=== PATIENT | female | born 1945 | race Caucasian/White ===

== ENCOUNTER 2016-08-09 09:07 | Emergency (ER) | payer MEDICARE, MEDICAID ==
[2016-08-09] MEDS ORDERED: predniSONE 20 MG TAB ONE (09:37)
== END 2016-08-09 10:39 | disposition home or self-care (01) ==
LOC: BURERS 09:07
DX: M54.41 Lumbago with sciatica, right side (principal); M54.42 Lumbago with sciatica, left side; J44.0 Chronic obstructive pulmonary disease with (acute) lower respiratory infection; J22 Unspecified acute lower respiratory infection; I10 Essential (primary) hypertension; E78.5 Hyperlipidemia, unspecified; E78.00 Pure hypercholesterolemia, unspecified; Z79.82 Long term (current) use of aspirin; Z79.899 Other long term (current) drug therapy; Z87.891 Personal history of nicotine dependence
CPT/HCPCS: 96372; J2270; J7506

== ENCOUNTER 2016-10-05 13:36 | Outpatient (CLI) | payer MEDICARE, MEDICAID ==
[2016-10-05 14:26] LABS: #Basophils 0.1 thou/uL (0.0-0.2); #Eosinphils 1.9 thou/uL (0.0-0.7); #Lymphocytes 2.5 thou/uL (1.20-3.40); #Monocytes 0.4 thou/uL (0.11-0.59); #Neutrophils 5.3 thou/uL (1.40-6.50); %Basophils 0.8 % (0.0-1.0); %Eosinophils 18.6 % (0.0-10.0); %Lymphocytes 24.3 % (21.0-51.0); %Monocytes 3.7 % (0.0-10.0); %Neutrophils 52.6 % (42.0-75.0); Hemoglobin 13.3 g/dL (12.0-16.0); Mean Corpuscular HGB CONC 32.8 g/dL (32.0-36.0); Mean Corpuscular Hemoglobin 28.4 pg (27.0-31.0); Mean Corpuscular Volume 86.7 fl (81.0-99.0); Mean Platelet Volume 7.3 fL (7.4-10.4); Platelet Count 283 thou/uL (130-400); RBC Distribution Width 13.1 % (11.5-14.5); Red Blood Cell (RBC) Count 4.69 mill/uL (4.20-5.40); White Blood Cell (WBC) Count 10.1 thou/uL (4.8-10.8)
[2016-10-05 15:26] LABS: Anion Gap 15 mmol/L (10-20); Carbon Dioxide 28 mmol/L (23-31); Chloride 103 mmol/L (98-107); Sodium 142 mmol/L (136-145)
[2016-10-05 15:28] LABS: Albumin 4.5 g/dL (3.4-4.8); Alkaline Phosphatase 173 U/L (40-150); BUN (Urea Nitrogen) 23 mg/dL (9.8-20.1); Bilirubin, Total 0.5 mg/dL (0.2-1.2); Calc. Creatinine Clearance 0 mL/min (70-130); Calcium 9.6 mg/dL (7.8-10.44); Cholesterol 136 mg/dL (< 200 Desired); Estimated GFR-MDRD 49; Globulin 2.8 g/dL (2.4-3.5); Glucose 104 mg/dL (83-110); Protein, Total 7.3 g/dL (5.8-8.1)
[2016-10-05 15:29] LABS: ALT (SGPT) 15 U/L (8-55); AST (SGOT) 16 U/L (5-34); HDL Cholesterol 46 mg/dL (>60 Neg Risk); LDL Cholesterol, Calculated 72 mg/dL; Triglycerides 88 mg/dL (Less than 150)
== END 2016-10-05 13:37 | disposition home or self-care (01) ==
LOC: HPCALD 13:36
PROVIDERS: ATTEND Family Medicine
DX: E78.5 Hyperlipidemia, unspecified (principal); I10 Essential (primary) hypertension
CPT/HCPCS: 36415; 80053; 80061; 85025

== ENCOUNTER 2017-01-03 21:33 | Emergency (ER) | payer MEDICARE, MEDICAID ==
[2017-01-03] MEDS ORDERED: Acetaminophen 325 MG TAB ONE (22:24)
[2017-01-03] MEDS ORDERED: Ondansetron HCl/PF 4 MG/2 ML Vial ONE ×2 (22:24→23:23)
[2017-01-03 22:36] LABS: #Basophils 0.1 thou/uL (0.0-0.2); #Eosinphils 1.1 thou/uL (0.0-0.7); #Monocytes 0.5 thou/uL (0.11-0.59); %Basophils 0.9 % (0.0-1.0); %Eosinophils 11.2 % (0.0-10.0); %Lymphocytes 31.2 % (21.0-51.0); %Monocytes 4.9 % (0.0-10.0); %Neutrophils 51.8 % (42.0-75.0); Hemoglobin 12.7 g/dL (12.0-16.0); Mean Corpuscular HGB CONC 32.9 g/dL (32.0-36.0); Mean Corpuscular Hemoglobin 28.2 pg (27.0-31.0); Mean Corpuscular Volume 85.8 fl (81.0-99.0); Mean Platelet Volume 8.1 fL (7.4-10.4); Platelet Count 284 thou/uL (130-400); RBC Distribution Width 12.4 % (11.5-14.5); Red Blood Cell (RBC) Count 4.52 mill/uL (4.20-5.40); White Blood Cell (WBC) Count 9.6 thou/uL (4.8-10.8)
[2017-01-03 22:45] LABS: INR-International Normal Ratio 1.1; PTT 25.3 SEC (22.9-36.1); Prothrombin Time 14.1 SEC (12.0-14.7)
[2017-01-03 22:46] LABS: Blood, Urine Trace (Negative); Clarity Slightly Cloudy (Clear); Glucose, Urine (Dipstick) Negative (Negative); Leukocyte Moderate (Negative); Nitrite Negative (Negative); Protein, Urine (Dipstick) Negative (Neg-Trace); Urobilinogen 0.2 mg/dL (0.2-1.0)
[2017-01-03 22:49] LABS: Bilirubin Negative (Negative)
[2017-01-03 22:52] LABS: Squamous Epithelial 0-3 HPF (0-3)
[2017-01-03 22:53] LABS: Bacteria/HPF 1+ HPF (None Seen); Hyaline Casts/LPF 4-6 HYALINE CAST LPF (0-3 Hyaline)
[2017-01-03 22:55] LABS: ALT (SGPT) 15 U/L (8-55); AST (SGOT) 16 U/L (5-34); Albumin 4.4 g/dL (3.4-4.8); Alkaline Phosphatase 162 U/L (40-150); Anion Gap 16 mmol/L (10-20); BUN (Urea Nitrogen) 23 mg/dL (9.8-20.1); Bilirubin, Total 0.3 mg/dL (0.2-1.2); CK (CPK) 80 U/L (29-168); CKMB 1.7 ng/mL (0-6.6); Calc. Creatinine Clearance 0 mL/min (70-130); Calcium 10.3 mg/dL (7.8-10.44); Carbon Dioxide 28 mmol/L (23-31); Chloride 104 mmol/L (98-107); Estimated GFR-MDRD 38; Glucose 127 mg/dL (83-110); Lipase 44 U/L (8-78); Potassium 3.6 mmol/L (3.5-5.1); Protein, Total 7.4 g/dL (6.0-8.3); Sodium 144 mmol/L (136-145); Troponin I 0.013 ng/mL (< 0.028)
[2017-01-04] MEDS ORDERED: Sulfameth/Trimethoprim DS 800-160mg TAB ONE (00:08)
--- NOTE | 2017-01-04 10:40 | RAD ---
PORTABLE CHEST: Date: 01-04-17 An AP portable film at 2254 is compared with a 04-09-15 study. FINDINGS: The heart is normal in size. The lungs are clear. No acute infiltrate or effusion was seen. The lung s are mildly hyperexpanded as usual. IMPRESSION: No acute thoracic finding. POS: HOME
--- NOTE | 2017-01-04 11:34 | CT ---
PRELIMINARY REPORT/[facility]/EMERGENCY AFTER HOURS PROCEDURE: EXAM: CT Head Without Intravenous Contrast EXAM DATE/TIME: Exam ordered 01/03/2017 11:11 PM CLINICAL HISTORY: 71 years old, female; Signs and symptoms; Dizziness; Patient HX: Dizzy x 1 day TECHNIQUE: Axial computed tomography images of the head/brain without intravenous contrast. COMPARISON: No relevant prior studies available. FINDINGS: Brain: Unremarkable. No hemorrhage. No significant white matter disease. No edema. Ventricles: Unremarkable. No ventriculomegaly. Bones/joints: Unremarkable. No acute fracture. Soft tissues: Unremarkable. Sinuses: Unremarkable as visualized. No acute sinusitis. Mastoid air cells: Unremarkable as visualized. No mastoid effusion. IMPRESSION: Normal head/brain CT. Thank you for allowing us to participate in the care of your patient. Dictated and Authenticated by: Octaviano Cordova MD 01/03/2017 11:31 PM Central Time ([place] \T\ [place]) FINAL REPORT CT OF THE BRAIN WITHOUT CONTRAST: Date: 01/04/17 No prior scans were available for comparison. The ventricles are normal in size with no shift. No in tracranial bleeding, mass, or sign of stroke was found. No edema was seen. The calvarium is thick, b ut otherwise unremarkable. The sphenoid sinus and mastoid air cells are clear. IMPRESSION: No acute intracranial findings. Report in agreement with preliminary reading by Juan C. POS: HOME
== END 2017-01-04 00:15 | disposition home or self-care (01) ==
LOC: BURERS 21:33
DX: N39.0 Urinary tract infection, site not specified (principal); R42 Dizziness and giddiness; I10 Essential (primary) hypertension; E78.5 Hyperlipidemia, unspecified; J44.9 Chronic obstructive pulmonary disease, unspecified; Z79.82 Long term (current) use of aspirin; Z79.899 Other long term (current) drug therapy; Z87.891 Personal history of nicotine dependence
CPT/HCPCS: 70450; 71010; 80053; 81003; 81015; 82553; 83690; 83880; 84484; 85025; 85610; 85730; 93005; 94760; 96361; 96374; J2270; J2405

== ENCOUNTER 2018-05-05 11:50 | Emergency (ER) | payer MEDICARE, MEDICAID | END 2018-05-05 12:55 | disposition home or self-care (01) | LOC: BURERS 11:50 | DX: L04.9 Acute lymphadenitis, unspecified (principal); I10 Essential (primary) hypertension; E78.5 Hyperlipidemia, unspecified; J44.9 Chronic obstructive pulmonary disease, unspecified; Z87.891 Personal history of nicotine dependence; Z79.899 Other long term (current) drug therapy; Z79.82 Long term (current) use of aspirin; Z79.51 Long term (current) use of inhaled steroids | CPT/HCPCS: 99283 ==

== ENCOUNTER 2018-07-06 08:46 | Emergency (ER) | payer MEDICARE, MEDICAID ==
[2018-07-06 09:19] LABS: #Basophils 0.1 thou/uL (0.0-0.2); #Eosinphils 0.7 thou/uL (0.0-0.7); #Lymphocytes 1.8 thou/uL (1.20-3.40); #Monocytes 0.3 thou/uL (0.11-0.59); #Neutrophils 3.9 thou/uL (1.40-6.50); %Eosinophils 10.5 % (0.0-10.0); %Lymphocytes 26.8 % (21.0-51.0); %Monocytes 4.6 % (0.0-10.0); %Neutrophils 57.2 % (42.0-75.0); Hemoglobin 12.1 g/dL (12.0-16.0); Mean Corpuscular HGB CONC 33.1 g/dL (32.0-36.0); Mean Corpuscular Hemoglobin 28.1 pg (27.0-31.0); Mean Corpuscular Volume 84.9 fL (78.0-98.0); Mean Platelet Volume 7.9 fL (7.4-10.4); Platelet Count 270 thou/uL (130-400); RBC Distribution Width 13.6 % (11.5-14.5); Red Blood Cell (RBC) Count 4.29 mill/uL (4.20-5.40); White Blood Cell (WBC) Count 6.9 thou/uL (4.8-10.8)
[2018-07-06 09:38] LABS: ALT (SGPT) 24 U/L (8-55); AST (SGOT) 29 U/L (5-34); Albumin 4.5 g/dL (3.4-4.8); Alkaline Phosphatase 125 U/L (40-150); Anion Gap 15 mmol/L (10-20); BUN (Urea Nitrogen) 15 mg/dL (9.8-20.1); Bilirubin, Total 0.6 mg/dL (0.2-1.2); Calc. Creatinine Clearance 0 mL/min (70-130); Calcium 9.7 mg/dL (7.8-10.44); Carbon Dioxide 24 mmol/L (23-31); Chloride 108 mmol/L (98-107); Estimated GFR-MDRD 56; Globulin 2.8 g/dL (2.4-3.5); Glucose 106 mg/dL (83-110); Potassium 4.1 mmol/L (3.5-5.1); Protein, Total 7.3 g/dL (6.0-8.3); Sodium 143 mmol/L (136-145)
[2018-07-06] MEDS ORDERED: methylPREDNISolone Sod Succ/PF 125 MG/2 ML VIAL ONE (09:43)
--- NOTE | 2018-07-06 20:08 | RAD ---
PORTABLE CHEST: 07/06/18 An AP portable film at 0851 is compared with a 06/02/[address] [facility]. The lungs are mildly hyperexpanded as usual. There are no major lobar infiltrates. A little haziness in the left base seems no different than before. There is no vascular congestion or edema. The heart size is normal. IMPRESSION: No acute thoracic finding. POS: HOME
== END 2018-07-06 10:34 | disposition home or self-care (01) ==
LOC: BURERS 08:46
DX: J44.1 Chronic obstructive pulmonary disease with (acute) exacerbation (principal); I10 Essential (primary) hypertension; E78.5 Hyperlipidemia, unspecified; Z87.891 Personal history of nicotine dependence; Z79.51 Long term (current) use of inhaled steroids; Z79.899 Other long term (current) drug therapy; Z79.82 Long term (current) use of aspirin
CPT/HCPCS: 71045; 80053; 83880; 84484; 85025; 93005; 94640; 96374; J2930; J7620

== ENCOUNTER 2019-02-17 17:56 | Emergency (ER) | payer MEDICARE, MEDICAID ==
[2019-02-17] MEDS ORDERED: methylPREDNISolone Sod Succ/PF 125 MG/2 ML VIAL ONE (18:22)
[2019-02-17 18:32] LABS: #Basophils 0.1 thou/uL (0.0-0.2); #Lymphocytes 2.5 thou/uL (1.20-3.40); #Monocytes 0.4 thou/uL (0.11-0.59); #Neutrophils 3.9 thou/uL (1.40-6.50); %Basophils 1.1 % (0.0-1.0); %Eosinophils 12.5 % (0.0-10.0); %Lymphocytes 31.3 % (21.0-51.0); %Monocytes 5.6 % (0.0-10.0); %Neutrophils 49.5 % (42.0-75.0); Mean Corpuscular HGB CONC 31.7 g/dL (32.0-36.0); Mean Corpuscular Hemoglobin 27.7 pg (27.0-31.0); Mean Corpuscular Volume 87.4 fL (78.0-98.0); Mean Platelet Volume 8.1 fL (7.4-10.4); Platelet Count 247 thou/uL (130-400); RBC Distribution Width 12.9 % (11.5-14.5); Red Blood Cell (RBC) Count 4.33 mill/uL (4.20-5.40); White Blood Cell (WBC) Count 7.9 thou/uL (4.8-10.8)
--- NOTE | 2019-02-17 18:38 | RAD ---
EXAM: Chest one view: HISTORY: Cough, fever, and COPD exacerbation COMPARISON: 26/12/2018 FINDINGS: Lower cervical spine anterior cervical fusion changes. Minimal stable increased markings in the left base. Heart size: Within normal limits. Lungs: Clear of acute process. No evidence for pneumonia, pleural effusion, acute edema, or pneumothorax, or other significant acute process. IMPRESSION: No significant acute intrathoracic disease. Stable exam.
[2019-02-17 18:44] LABS: ALT (SGPT) 12 U/L (8-55); AST (SGOT) 14 U/L (5-34); Albumin 4.4 g/dL (3.4-4.8); Alkaline Phosphatase 136 U/L (40-110); Anion Gap 15 mmol/L (10-20); BUN (Urea Nitrogen) 20 mg/dL (9.8-20.1); Bilirubin, Total 0.3 mg/dL (0.2-1.2); CK (CPK) 101 U/L (29-168); Calc. Creatinine Clearance 0 mL/min (70-130); Calcium 9.1 mg/dL (7.8-10.44); Carbon Dioxide 26 mmol/L (23-31); Chloride 106 mmol/L (98-107); Estimated GFR-MDRD 34; Globulin 2.8 g/dL (2.4-3.5); Glucose 105 mg/dL (83-110); Potassium 3.8 mmol/L (3.5-5.1); Protein, Total 7.2 g/dL (6.0-8.3); Sodium 143 mmol/L (136-145)
== END 2019-02-17 19:13 | disposition home or self-care (01) ==
LOC: BURERS 17:56
DX: J44.1 Chronic obstructive pulmonary disease with (acute) exacerbation (principal); I10 Essential (primary) hypertension; E78.5 Hyperlipidemia, unspecified; E78.00 Pure hypercholesterolemia, unspecified; Z87.891 Personal history of nicotine dependence; Z79.899 Other long term (current) drug therapy; Z79.82 Long term (current) use of aspirin; Z79.51 Long term (current) use of inhaled steroids
CPT/HCPCS: 71045; 80053; 82550; 84443; 84484; 85025; 93005; 96374; J2930; J7620

== ENCOUNTER 2019-03-08 16:33 | Emergency (ER) | payer MEDICARE, MEDICAID ==
[2019-03-08 16:50] LABS: #Basophils 0.2 thou/uL (0.0-0.2); #Eosinphils 1.4 thou/uL (0.0-0.7); #Monocytes 0.8 thou/uL (0.11-0.59); #Neutrophils 6.7 thou/uL (1.40-6.50); %Basophils 1.2 % (0.0-1.0); %Eosinophils 10.4 % (0.0-10.0); %Lymphocytes 31.1 % (21.0-51.0); %Neutrophils 51.3 % (42.0-75.0); Hemoglobin 13.3 g/dL (12.0-16.0); Mean Corpuscular HGB CONC 30.4 g/dL (32.0-36.0); Mean Corpuscular Hemoglobin 27.5 pg (27.0-31.0); Mean Corpuscular Volume 90.4 fL (78.0-98.0); Mean Platelet Volume 8.3 fL (7.4-10.4); Platelet Count 305 thou/uL (130-400); Red Blood Cell (RBC) Count 4.83 mill/uL (4.20-5.40)
[2019-03-08 17:08] LABS: ALT (SGPT) 10 U/L (8-55); AST (SGOT) 16 U/L (5-34); Alkaline Phosphatase 146 U/L (40-110); Anion Gap 17 mmol/L (10-20); BUN (Urea Nitrogen) 19 mg/dL (9.8-20.1); Base Excess-Venous 1.1 mmol/L (-2.0 to 3.0); Bicarbonate (HCO3v) 31.7 mmol/L (22.0-28.0); Bilirubin, Total 0.4 mg/dL (0.2-1.2); CO2 Tension (PvCO2) 78.8 mmHg (40.0-50.0); Calc. Creatinine Clearance 0 mL/min (70-130); Calcium, Ionized 1.24 mmol/L (See Comments:); Carbon Dioxide 27 mmol/L (23-31); Chloride 106 mmol/L (98-107); Chloride 107 mmol/L (98-107); Estimated GFR-MDRD 44; Globulin 2.6 g/dL (2.4-3.5); Glucose 97 mg/dL (83-110); Hemoglobin - Calc 15.1 g/dL (12.0-16.0); Potassium 3.7 mmol/L (3.5-5.1); Protein, Total 7.6 g/dL (6.0-8.3); Sodium 145 mmol/L (138-145); Sodium 146 mmol/L (136-145); T. Carbon Dioxide 34.1 mmol/L (22.0-28.0)
[2019-03-08] MEDS ORDERED: Acetaminophen 500 MG TAB ONE (17:52)
[2019-03-08] MEDS ORDERED: Azithromycin 250 MG TAB ONE ×2 (18:55→18:56)
--- NOTE | 2019-03-08 19:41 | RAD ---
PORTABLE CHEST: 03/08/19 An AP portable film at 1656 is compared with a 02/17/19 study. Some lingular scarring is suggested. The heart size is normal. No lobar consolidations or effusions a re seen, but it is difficult to see well in the left lung base. Slight haziness in the bases otherwis e is felt to be due to overlying soft tissues. Degenerative changes are present in the AC joints. IMPRESSION: No acute thoracic finding. POS: HOME
== END 2019-03-08 19:00 | disposition home or self-care (01) ==
LOC: BURERS 16:33
DX: J44.1 Chronic obstructive pulmonary disease with (acute) exacerbation (principal); I10 Essential (primary) hypertension; E78.00 Pure hypercholesterolemia, unspecified; Z87.891 Personal history of nicotine dependence; Z79.899 Other long term (current) drug therapy; Z79.82 Long term (current) use of aspirin; Z79.51 Long term (current) use of inhaled steroids
CPT/HCPCS: 71045; 80053; 82330; 82803; 83880; 84484; 85025; 93005; 96365; 96375; J7620

== ENCOUNTER 2019-09-24 22:40 | Emergency (ER) | payer MEDICARE, MEDICAID ==
[2019-09-24] MEDS ORDERED: methylPREDNISolone Sod Succ/PF 125 MG/2 ML VIAL ONE (22:55)
== END 2019-09-24 23:05 | disposition home or self-care (01) ==
LOC: BURERS 22:40
DX: J44.1 Chronic obstructive pulmonary disease with (acute) exacerbation (principal); I11.0 Hypertensive heart disease with heart failure; I50.9 Heart failure, unspecified; E78.5 Hyperlipidemia, unspecified; E78.00 Pure hypercholesterolemia, unspecified; Z87.891 Personal history of nicotine dependence; Z79.899 Other long term (current) drug therapy; Z79.82 Long term (current) use of aspirin; Z79.51 Long term (current) use of inhaled steroids
CPT/HCPCS: 96372; 99284; J2930

== ENCOUNTER → 2019-10-03 | Emergency (ER) | payer MEDICARE, MEDICAID, OTHER ==
[~2019-10-03] MED LIST: Fentanyl 100 MCG/2 ML VIAL ONE; Midazolam HCl 2 mg/2 ml Vial ONE; Rocuronium Bromide 10 MG/ML (10ML VIAL) ONE; Sodium Chloride 0.9% 100 ML ONE; cefTRIAXone\\ROCEPHIN 1 GM VIAL ONE; methylPREDNISolone Sod Succ/PF 125 MG/2 ML VIAL ONE
[2019-10-03 10:19] LABS: Hemoglobin 12.9 g/dL (12.0-16.0); Mean Corpuscular HGB CONC 29.5 g/dL (32.0-36.0); Mean Corpuscular Hemoglobin 27.2 pg (27.0-31.0); Mean Corpuscular Volume 92.5 fL (78.0-98.0); Mean Platelet Volume 8.3 fL (7.4-10.4); Platelet Count 540 thou/uL (130-400); RBC Distribution Width 13.4 % (11.5-14.5); Red Blood Cell (RBC) Count 4.75 mill/uL (4.20-5.40); White Blood Cell (WBC) Count 29.4 thou/uL (4.8-10.8)
[2019-10-03 10:42] LABS: Eosinophils 1 % (0-10); Lymphocytes 38 % (21-51); MDiff Complete? YES; Monocytes 7 % (0-10); Neutrophil 53 % (42-75); Platelet Morphology Comment Appears Increased
[2019-10-03 11:07] LABS: ALT (SGPT) 10 U/L (8-55); AST (SGOT) 14 U/L (5-34); Albumin 4.5 g/dL (3.4-4.8); Alkaline Phosphatase 117 U/L (40-110); Anion Gap 14 mmol/L (10-20); BUN (Urea Nitrogen) 22 mg/dL (9.8-20.1); Bilirubin, Total 0.4 mg/dL (0.2-1.2); Calc. Creatinine Clearance 0 mL/min (70-130); Calcium 9.2 mg/dL (7.8-10.44); Carbon Dioxide 30 mmol/L (23-31); Chloride 106 mmol/L (98-107); Estimated GFR-MDRD 40; Globulin 2.2 g/dL (2.4-3.5); Glucose 234 mg/dL (83-110); Potassium 4.5 mmol/L (3.5-5.1); Protein, Total 6.7 g/dL (6.0-8.3); Sodium 145 mmol/L (136-145)
--- NOTE | 2019-10-03 19:59 | RAD ---
PORTABLE CHEST: 10/03/19 An AP semiupright film at 1011 is compared with a 07/23/2019 study. While there is no major lobar infiltrate, the lung markings in the right lung base seem a little more than they were previously. I cannot exclude a developing infiltrate here. The patient has been intub ated. The tip of the endometrial tube is 1 cm or 2 above the megan. I believe an NG tube is present as well but it cannot be easily followed to its tip. The heart size is normal. IMPRESSION: Slight increase in right basilar markings. POS: HOME
[2019-10-04 10:57] LABS: SARS-CoV-2 MS2 Positive; SARS-CoV-2 N Gene Negative; SARS-CoV-2 S Gene Negative; SARS-CoV-2 orf1ab Negative
== END ==
LOC: BURERS 09:30
DX: J44.1 Chronic obstructive pulmonary disease with (acute) exacerbation (principal); J96.90 Respiratory failure, unspecified, unspecified whether with hypoxia or hypercapnia; Z87.891 Personal history of nicotine dependence; Z20.828 Contact with and (suspected) exposure to other viral communicable diseases
CPT/HCPCS: 31500; 71045; 80053; 84484; 85025; 85379; 87040; 87804 ×2; 93005; 96374; 96375; 99291; 99292; U0003; 87635; J0696; J2250; J2930; J3010; J3490; J7620

== ENCOUNTER 2019-10-25 15:12 | Outpatient (CLI) | payer MEDICARE, MEDICAID ==
--- NOTE | 2019-10-25 17:58 | RAD ---
LUMBAR SPINE THREE VIEWS: 10/25/19 Mild lumbar scoliosis convexed right was noted. No fracture or vertebral compression was appreciated. Very slight disc space narrowing is seen at L1-L2, L2-L3, and L4-L5. Osteophytes are seen at most le vels. The SI joints are normal in appearance. There is considerable material in the colon. The aorta is densely calcified, as are the iliac arteries. IMPRESSION: Moderate arthritic changes but no acute findings. POS: HOME
== END 2019-10-25 15:13 | disposition home or self-care (01) ==
LOC: BURRAD 15:12
PROVIDERS: ATTEND Family Medicine
DX: M54.5 Low back pain (principal); M46.96 Unspecified inflammatory spondylopathy, lumbar region
CPT/HCPCS: 72100

== ENCOUNTER 2019-11-05 19:11 | Emergency (ER) | payer MEDICARE, MEDICAID, OTHER ==
[~2019-11-05 19:11] MED LIST changes: -Fentanyl 100 MCG/2 ML VIAL ONE; +Iopamidol 370 76% 100 ML VIAL ONE; -Midazolam HCl 2 mg/2 ml Vial ONE; -Rocuronium Bromide 10 MG/ML (10ML VIAL) ONE; -Sodium Chloride 0.9% 100 ML ONE; -cefTRIAXone\\ROCEPHIN 1 GM VIAL ONE; -methylPREDNISolone Sod Succ/PF 125 MG/2 ML VIAL ONE
[2019-11-05] MEDS ORDERED: Acetaminophen 500 MG TAB ONE (19:28)
[2019-11-05] MEDS ORDERED: Albuterol Sulfate 1.25 MG/3 ML NEB ONE (19:41)
[2019-11-05] MEDS ORDERED: Cefepime 2 GM VIAL ONE (19:41)
[2019-11-05] MEDS ORDERED: Albuterol Sulfate 2.5 mg/3 ml Neb ONE (19:44)
[2019-11-05 19:49] LABS: #Basophils 0.1 thou/uL (0.0-0.2); #Eosinphils 0.4 thou/uL (0.0-0.7); #Lymphocytes 2.1 thou/uL (1.20-3.40); #Monocytes 0.4 thou/uL (0.11-0.59); #Neutrophils 5.5 thou/uL (1.40-6.50); %Basophils 0.7 % (0.0-1.0); %Eosinophils 4.3 % (0.0-10.0); %Lymphocytes 24.8 % (21.0-51.0); %Monocytes 4.8 % (0.0-10.0); %Neutrophils 65.4 % (42.0-75.0); Mean Corpuscular HGB CONC 30.1 g/dL (32.0-36.0); Mean Corpuscular Hemoglobin 27.3 pg (27.0-31.0); Mean Corpuscular Volume 90.8 fL (78.0-98.0); Mean Platelet Volume 8.5 fL (7.4-10.4); Platelet Count 282 thou/uL (130-400); RBC Distribution Width 13.2 % (11.5-14.5); Red Blood Cell (RBC) Count 4.03 mill/uL (4.20-5.40); White Blood Cell (WBC) Count 8.4 thou/uL (4.8-10.8)
[2019-11-05] MEDS ORDERED: Ventolin HFA Inhaler 60 PUFF INHALER ONE (19:51)
[2019-11-05 20:04] LABS: ALT (SGPT) 15 U/L (8-55); AST (SGOT) 15 U/L (5-34); Albumin 4.4 g/dL (3.4-4.8); Alkaline Phosphatase 134 U/L (40-110); Anion Gap 15 mmol/L (10-20); BUN (Urea Nitrogen) 11 mg/dL (9.8-20.1); Bilirubin, Total 0.3 mg/dL (0.2-1.2); Calc. Creatinine Clearance 0 mL/min (70-130); Calcium 9.1 mg/dL (7.8-10.44); Carbon Dioxide 26 mmol/L (23-31); Chloride 107 mmol/L (98-107); Estimated GFR-MDRD 63; Globulin 2.5 g/dL (2.4-3.5); Glucose 96 mg/dL (83-110); Lipase 32 U/L (8-78); Magnesium 2.2 mg/dL (1.6-2.6); Potassium 3.6 mmol/L (3.5-5.1); Protein, Total 6.9 g/dL (6.0-8.3)
[2019-11-05 20:22] LABS: Sodium 144 mmol/L (136-145)
[2019-11-05] MEDS ORDERED: Aspirin Chewable 81 MG TAB ONE (20:49)
[2019-11-05] MEDS ORDERED: Dexamethasone 4 MG TAB ONE (20:51)
[2019-11-05] MEDS ORDERED: Dexamethasone 4 mg/ml Vial ONE (20:52)
[2019-11-05 21:54] LABS: Bilirubin Negative (Negative); Blood, Urine Negative (Negative); Clarity Slightly Cloudy (Clear); Glucose, Urine (Dipstick) Negative (Negative); Ketone, Urine Negative (Negative); Leukocyte Moderate (Negative); Nitrite Negative (Negative); Protein, Urine (Dipstick) Negative (Neg-Trace); Specific Gravity, Urine 1.015 (1.005-1.030); Urobilinogen 0.2 mg/dL (Less than 2)
[2019-11-05 22:00] LABS: RBC/HPF None Seen HPF (0-3); Squamous Epithelial 0-3 HPF (0-3)
[2019-11-05 22:01] LABS: Bacteria/HPF 1+ HPF (None Seen); Broad Cast 0-3 LPF (None Seen)
--- NOTE | 2019-11-06 07:33 | RAD ---
PORTABLE CHEST: Date: 11/05/2019 Comparison made with the 10/05/2019 study. Any changes in the interval are minimal. The heart size is normal. There is no congestive change or l arge pleural effusion. The lungs are hyperexpanded, consistent with COPD. Minor basilar haziness may be scarring or atelectasis and seems little different than before. IMPRESSION: Emphysematous changes, but no acute findings. POS: HOME
--- NOTE | 2019-11-06 07:41 | CT ---
CT ANGIO F THE CHEST: DATE: 11/05/2019. FINDINGS: A spiral CT of the chest was done after a bolus of IV contrast for evaluation of this patient with dy spnea. There is good opacification of the pulmonary arteries. There is no sign of filling defect to suggest emboli. Arteriosclerotic change is seen in the aorta, but there is no evidence of dissection or ane urysm. Arteriosclerotic change is particularly notable in the left subclavian artery. Some is also seen in some of the coronary arteries. There is no sign of pericardial effusion. No mediastinal mas s or adenopathy was seen. There is a small hiatal hernia. Diffuse emphysematous changes are seen th roughout the lungs bilaterally and seen moderately severe in degree. There are few areas of atelecta sis in the lower halves of the lungs and a little thickening or minimal fluid in the minor fissure. There are no significant effusions, however. Scans into the upper abdomen showed no acute change. T he spleen was generous in size but still under 14 cm in size. 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 IMPRESSION: 1. No evidence of pulmonary embolism. 2. Severe emphysematous change. 3. No lobar pneumonia is seen. Minimal basilar haziness seems more likely atelectatic in nature nara n not. Preliminary report called to Dr. Hewitt at 2233 on 11/05/2019. CODE CR POS: HOME
== END 2019-11-05 22:47 | disposition home or self-care (01) ==
LOC: BURERS 19:11
DX: A41.9 Sepsis, unspecified organism (principal); J44.1 Chronic obstructive pulmonary disease with (acute) exacerbation; J44.0 Chronic obstructive pulmonary disease with (acute) lower respiratory infection; J18.9 Pneumonia, unspecified organism; N39.0 Urinary tract infection, site not specified; Z20.828 Contact with and (suspected) exposure to other viral communicable diseases; I11.0 Hypertensive heart disease with heart failure; I50.9 Heart failure, unspecified; E78.5 Hyperlipidemia, unspecified; Z87.891 Personal history of nicotine dependence; Z79.82 Long term (current) use of aspirin; Z79.899 Other long term (current) drug therapy
CPT/HCPCS: 71045; 71275; 80053; 81003; 81015; 83605; 83690; 83735; 83880; 84443; 84484; 85025; 85379; 87040; 87086; 93005; J0692; J1100; J3370; J7611; J8540; Q9967

== ENCOUNTER 2021-01-23 18:23 | Emergency (ER) | payer MEDICARE, MEDICAID ==
[~2021-01-23 18:23] MED LIST changes: -Iopamidol 370 76% 100 ML VIAL ONE; +methylPREDNISolone Sod Succ/PF 125 MG/2 ML VIAL ONE
== END 2021-01-23 19:17 | disposition home or self-care (01) ==
LOC: BURERS 18:23
DX: J44.1 Chronic obstructive pulmonary disease with (acute) exacerbation (principal); I11.0 Hypertensive heart disease with heart failure; I50.9 Heart failure, unspecified; E78.5 Hyperlipidemia, unspecified; Z87.891 Personal history of nicotine dependence; Z79.899 Other long term (current) drug therapy
CPT/HCPCS: 96372; 99284; J2930

== ENCOUNTER 2021-02-24 11:05 | Outpatient (CLI) | payer MEDICARE, MEDICAID | END 2021-02-24 11:06 | disposition home or self-care (01) | LOC: BURRAD 11:05 | PROVIDERS: ATTEND Family Medicine | DX: M25.511 Pain in right shoulder (principal); M19.011 Primary osteoarthritis, right shoulder ==

== ENCOUNTER 2021-04-11 13:56 | Emergency (ER) | payer MEDICARE, MEDICAID ==
[2021-04-11] MEDS ORDERED: methylPREDNISolone Sod Succ/PF 125 MG/2 ML VIAL ONE (14:28)
== END 2021-04-11 15:20 | disposition home or self-care (01) ==
LOC: BURERS 13:56
DX: J44.1 Chronic obstructive pulmonary disease with (acute) exacerbation (principal); I11.0 Hypertensive heart disease with heart failure; I50.9 Heart failure, unspecified; E78.5 Hyperlipidemia, unspecified; J44.9 Chronic obstructive pulmonary disease, unspecified; Z87.891 Personal history of nicotine dependence; Z79.899 Other long term (current) drug therapy; Z79.82 Long term (current) use of aspirin
CPT/HCPCS: 94640; 94760; 96372; J2930; J7620

== ENCOUNTER 2021-06-07 19:18 | Emergency (ER) | payer MEDICARE, MEDICAID ==
[2021-06-07] MEDS ORDERED: Albuterol Sulfate 1.25 MG/3 ML NEB ONE (19:44)
[2021-06-07] MEDS ORDERED: methylPREDNISolone Sod Succ/PF 125 MG/2 ML VIAL ONE (19:44)
[2021-06-07] MEDS ORDERED: AMOXicillin 250 MG CAP ONE (20:21)
== END 2021-06-07 20:26 | disposition home or self-care (01) ==
LOC: BURERS 19:18
DX: J44.1 Chronic obstructive pulmonary disease with (acute) exacerbation (principal); R00.0 Tachycardia, unspecified; I11.0 Hypertensive heart disease with heart failure; I50.9 Heart failure, unspecified; E78.5 Hyperlipidemia, unspecified; Z87.891 Personal history of nicotine dependence; Z79.82 Long term (current) use of aspirin; Z79.899 Other long term (current) drug therapy
CPT/HCPCS: 93005; 94640; 96372; J2930

== ENCOUNTER 2021-06-12 18:12 | Emergency (ER) | payer MEDICARE, MEDICAID ==
[2021-06-12 19:34] LABS: #Basophils 0.1 thou/uL (0.0-0.2); #Eosinphils 0.8 thou/uL (0.0-0.7); #Lymphocytes 2.9 thou/uL (1.20-3.40); #Monocytes 0.5 thou/uL (0.11-0.59); %Basophils 0.9 % (0.0-1.0); %Eosinophils 5.9 % (0.0-10.0); %Lymphocytes 21.6 % (21.0-51.0); %Monocytes 4.1 % (0.0-10.0); %Neutrophils 67.6 % (42.0-75.0); Hemoglobin 12.1 g/dL (12.0-16.0); Mean Corpuscular HGB CONC 31.9 g/dL (32.0-36.0); Mean Corpuscular Hemoglobin 28.2 pg (27.0-31.0); Mean Corpuscular Volume 88.4 fL (78.0-98.0); Mean Platelet Volume 7.5 fL (7.4-10.4); Platelet Count 356 thou/uL (130-400); RBC Distribution Width 13.8 % (11.5-14.5); White Blood Cell (WBC) Count 13.2 thou/uL (4.8-10.8)
[2021-06-12] MEDS ORDERED: methylPREDNISolone Sod Succ/PF 125 MG/2 ML VIAL ONE (19:36)
[2021-06-12 19:44] LABS: ALT (SGPT) 13 U/L (8-55); AST (SGOT) 13 U/L (5-34); Albumin 4.1 g/dL (3.4-4.8); Alkaline Phosphatase 85 U/L (40-110); Anion Gap 16 mmol/L (10-20); BUN (Urea Nitrogen) 32 mg/dL (9.8-20.1); Bilirubin, Total Less than 0.2 mg/dL (0.2-1.2); Calc. Creatinine Clearance 0 mL/min (70-130); Calcium 9.1 mg/dL (7.8-10.44); Carbon Dioxide 27 mmol/L (23-31); Chloride 106 mmol/L (98-107); Globulin 2.6 g/dL (2.4-3.5); Glucose 111 mg/dL (83-110); Potassium 4.2 mmol/L (3.5-5.1); Protein, Total 6.7 g/dL (5.8-8.1); Sodium 145 mmol/L (136-145)
[2021-06-12] MEDS ORDERED: Doxycycline 100 MG CAP PO SCH (20:00)
== END 2021-06-12 20:55 | disposition home or self-care (01) ==
LOC: BURERS 18:12
DX: J44.1 Chronic obstructive pulmonary disease with (acute) exacerbation (principal); I11.0 Hypertensive heart disease with heart failure; I50.9 Heart failure, unspecified; E78.5 Hyperlipidemia, unspecified; Z87.891 Personal history of nicotine dependence; Z95.5 Presence of coronary angioplasty implant and graft; Z79.82 Long term (current) use of aspirin; Z79.899 Other long term (current) drug therapy
CPT/HCPCS: 71045; 80053; 83880; 84484; 85025; 93005; 96374; J2930; J7620

== ENCOUNTER 2021-06-13 20:42 | Emergency (ER) | payer MEDICARE, MEDICAID ==
[2021-06-13] MEDS ORDERED: methylPREDNISolone Sod Succ/PF 125 MG/2 ML VIAL ONE (21:10)
[2021-06-13 21:13] LABS: #Lymphocytes 1.1 thou/uL (1.20-3.40); #Monocytes 0.5 thou/uL (0.11-0.59); #Neutrophils 13.2 thou/uL (1.40-6.50); %Basophils 0.1 % (0.0-1.0); %Lymphocytes 7.3 % (21.0-51.0); %Neutrophils 89.6 % (42.0-75.0); Hemoglobin 12.9 g/dL (12.0-16.0); Mean Corpuscular HGB CONC 32.9 g/dL (32.0-36.0); Mean Corpuscular Hemoglobin 28.6 pg (27.0-31.0); Mean Corpuscular Volume 87.1 fL (78.0-98.0); Platelet Count 457 thou/uL (130-400); RBC Distribution Width 13.5 % (11.5-14.5); White Blood Cell (WBC) Count 14.8 thou/uL (4.8-10.8)
[2021-06-13 21:28] LABS: ALT (SGPT) 19 U/L (8-55); AST (SGOT) 19 U/L (5-34); Albumin 4.4 g/dL (3.4-4.8); Alkaline Phosphatase 105 U/L (40-110); Anion Gap 15 mmol/L (10-20); BUN (Urea Nitrogen) 36 mg/dL (9.8-20.1); Bilirubin, Total 0.2 mg/dL (0.2-1.2); Calc. Creatinine Clearance 0 mL/min (70-130); Calcium 9.1 mg/dL (7.8-10.44); Carbon Dioxide 29 mmol/L (23-31); Chloride 102 mmol/L (98-107); Globulin 2.9 g/dL (2.4-3.5); Magnesium 2.5 mg/dL (1.6-2.6); Potassium 4.2 mmol/L (3.5-5.1); Protein, Total 7.3 g/dL (5.8-8.1); Sodium 142 mmol/L (136-145)
[2021-06-13 21:29] LABS: Glucose 210 mg/dL (83-110)
[2021-06-14 23:19] LABS: SARS-CoV-2 PCR by NAA Not Detected (NotDetected)
== END 2021-06-13 22:16 | disposition home or self-care (01) ==
LOC: BURERS 20:42
DX: J44.1 Chronic obstructive pulmonary disease with (acute) exacerbation (principal); I49.3 Ventricular premature depolarization; R73.9 Hyperglycemia, unspecified; R00.0 Tachycardia, unspecified; I11.0 Hypertensive heart disease with heart failure; I50.9 Heart failure, unspecified; E78.5 Hyperlipidemia, unspecified; Z20.822 Contact with and (suspected) exposure to COVID-19; Z87.891 Personal history of nicotine dependence; Z95.5 Presence of coronary angioplasty implant and graft; Z79.82 Long term (current) use of aspirin; Z79.899 Other long term (current) drug therapy
CPT/HCPCS: 71045; 80053; 83605; 83735; 83880; 84484; 85025; 85379; 87040; 87804 ×2; 93005; 94760; 96374; 99285; U0003; U0005; 36415; J2930; J7620

== ENCOUNTER 2021-06-24 18:15 | Emergency (ER) | payer MEDICARE, MEDICAID ==
[2021-06-24] MEDS ORDERED: Doxycycline 100 MG CAP ONE (18:37)
[2021-06-24] MEDS ORDERED: methylPREDNISolone Sod Succ/PF 125 MG/2 ML VIAL ONE (18:38)
[2021-06-24 18:45] LABS: #Basophils 0.1 thou/uL (0.0-0.2); #Eosinphils 0.4 thou/uL (0.0-0.7); #Lymphocytes 1.8 thou/uL (1.20-3.40); #Monocytes 0.6 thou/uL (0.11-0.59); #Neutrophils 5.4 thou/uL (1.40-6.50); %Basophils 0.7 % (0.0-1.0); %Eosinophils 5.2 % (0.0-10.0); %Lymphocytes 21.5 % (21.0-51.0); %Monocytes 7.6 % (0.0-10.0); %Neutrophils 64.9 % (42.0-75.0); Hemoglobin 11.3 g/dL (12.0-16.0); Mean Corpuscular HGB CONC 31.1 g/dL (32.0-36.0); Mean Corpuscular Hemoglobin 27.6 pg (27.0-31.0); Mean Corpuscular Volume 88.6 fL (78.0-98.0); Mean Platelet Volume 8.3 fL (7.4-10.4); Platelet Count 273 thou/uL (130-400); RBC Distribution Width 13.8 % (11.5-14.5); Red Blood Cell (RBC) Count 4.11 mill/uL (4.20-5.40); White Blood Cell (WBC) Count 8.3 thou/uL (4.8-10.8)
[2021-06-24 18:58] LABS: ALT (SGPT) 14 U/L (8-55); AST (SGOT) 18 U/L (5-34); Albumin 4.2 g/dL (3.4-4.8); Alkaline Phosphatase 99 U/L (40-110); Anion Gap 15 mmol/L (10-20); BUN (Urea Nitrogen) 18 mg/dL (9.8-20.1); Bilirubin, Total 0.5 mg/dL (0.2-1.2); Calc. Creatinine Clearance 0 mL/min (70-130); Calcium 10.2 mg/dL (7.8-10.44); Carbon Dioxide 30 mmol/L (23-31); Chloride 102 mmol/L (98-107); Glucose 120 mg/dL (83-110); Protein, Total 7.2 g/dL (5.8-8.1); Sodium 143 mmol/L (136-145)
[2021-06-24] MEDS ORDERED: Acetaminophen 325 MG TAB ONE (19:08)
== END 2021-06-24 19:34 | disposition left against medical advice (07) ==
LOC: BURERS 18:15
DX: J44.1 Chronic obstructive pulmonary disease with (acute) exacerbation (principal); I11.0 Hypertensive heart disease with heart failure; I50.9 Heart failure, unspecified; E78.5 Hyperlipidemia, unspecified; Z87.891 Personal history of nicotine dependence; Z79.899 Other long term (current) drug therapy; Z79.82 Long term (current) use of aspirin
CPT/HCPCS: 36415; 71045; 80053; 83880; 84484; 85025; 93005; 96374; J2930; J7620

== ENCOUNTER 2021-07-07 15:53 | Outpatient (CLI) | payer MEDICARE, MEDICAID | END 2021-07-07 15:54 | disposition home or self-care (01) | LOC: BURRAD 15:53 | PROVIDERS: ATTEND Family Medicine | DX: M54.2 Cervicalgia (principal); M47.812 Spondylosis without myelopathy or radiculopathy, cervical region; Z98.1 Arthrodesis status | CPT/HCPCS: 72050 ==

== ENCOUNTER 2021-07-26 09:06 | Emergency (ER) | payer MEDICARE, MEDICAID ==
[2021-07-26 09:39] LABS: #Basophils 0.1 thou/uL (0.0-0.2); #Eosinphils 0.1 thou/uL (0.0-0.7); #Lymphocytes 2.4 thou/uL (1.20-3.40); #Monocytes 0.4 thou/uL (0.11-0.59); #Neutrophils 6.3 thou/uL (1.40-6.50); %Basophils 0.9 % (0.0-1.0); %Eosinophils 0.6 % (0.0-10.0); %Lymphocytes 26.4 % (21.0-51.0); %Monocytes 4.2 % (0.0-10.0); %Neutrophils 67.9 % (42.0-75.0); Mean Corpuscular HGB CONC 32.7 g/dL (32.0-36.0); Mean Corpuscular Volume 88.9 fL (78.0-98.0); Mean Platelet Volume 7.5 fL (7.4-10.4); Platelet Count 275 thou/uL (130-400); RBC Distribution Width 13.8 % (11.5-14.5); White Blood Cell (WBC) Count 9.3 thou/uL (4.8-10.8)
[2021-07-26 09:54] LABS: ALT (SGPT) 8 U/L (8-55); AST (SGOT) 12 U/L (5-34); Albumin 3.9 g/dL (3.4-4.8); Alkaline Phosphatase 72 U/L (40-110); Anion Gap 14 mmol/L (10-20); BUN (Urea Nitrogen) 19 mg/dL (9.8-20.1); Bilirubin, Total 0.4 mg/dL (0.2-1.2); Calc. Creatinine Clearance 0 mL/min (70-130); Calcium 8.4 mg/dL (7.8-10.44); Carbon Dioxide 27 mmol/L (23-31); Chloride 110 mmol/L (98-107); Glucose 84 mg/dL (83-110); Potassium 3.8 mmol/L (3.5-5.1); Protein, Total 5.9 g/dL (5.8-8.1); Sodium 147 mmol/L (136-145)
== END 2021-07-26 10:34 | disposition home or self-care (01) ==
LOC: BURERS 09:06
DX: J44.9 Chronic obstructive pulmonary disease, unspecified (principal); R00.0 Tachycardia, unspecified; I49.8 Other specified cardiac arrhythmias; I11.0 Hypertensive heart disease with heart failure; I50.9 Heart failure, unspecified; E78.5 Hyperlipidemia, unspecified; Z95.5 Presence of coronary angioplasty implant and graft; Z87.891 Personal history of nicotine dependence; Z79.82 Long term (current) use of aspirin; Z79.899 Other long term (current) drug therapy
CPT/HCPCS: 71045; 80053; 83605; 85025; 87040; 93005; 94760

== ENCOUNTER 2023-07-02 19:49 | Emergency (ER) | payer MEDICARE, MEDICAID ==
[2023-07-02] MEDS ORDERED: Dexamethasone 4 MG TAB ONE (20:11)
[2023-07-02] MEDS ORDERED: Oseltamivir 75 MG CAP ONE (20:12)
== END 2023-07-02 20:35 | disposition home or self-care (01) ==
LOC: BURERS 19:49
DX: J10.1 Influenza due to other identified influenza virus with other respiratory manifestations (principal); J44.9 Chronic obstructive pulmonary disease, unspecified; I11.0 Hypertensive heart disease with heart failure; I50.9 Heart failure, unspecified; Z87.891 Personal history of nicotine dependence
CPT/HCPCS: 99283; J8540

== ENCOUNTER 2023-08-26 21:54 | Emergency (ER) | payer MEDICARE, MEDICAID ==
[2023-08-26 22:30] LABS: #Basophils 0.1 thou/uL (0.0-0.2); #Eosinphils 0.5 thou/uL (0.0-0.7); #Lymphocytes 3.2 thou/uL (1.20-3.40); #Monocytes 0.5 thou/uL (0.11-0.59); #Neutrophils 7.4 thou/uL (1.40-6.50); %Eosinophils 4.5 % (0.0-10.0); %Lymphocytes 27.4 % (21.0-51.0); %Monocytes 4.5 % (0.0-10.0); %Neutrophils 62.6 % (42.0-75.0); Hematocrit 37.3 % (36.0-47.0); Hemoglobin 11.4 g/dL (12.0-16.0); Mean Corpuscular HGB CONC 30.6 g/dL (32.0-36.0); Mean Corpuscular Hemoglobin 26.5 pg (27.0-31.0); Mean Corpuscular Volume 86.8 fl (78.0-98.0); Mean Platelet Volume 8.5 fL (7.4-10.4); Platelet Count 302 10x3/uL (130-400); White Blood Cell (WBC) Count 11.8 10x3/uL (4.8-10.8)
[2023-08-26 22:45] LABS: Base Excess-Venous -1.4 mmol/L (-2.0 to 3.0); Bicarbonate (HCO3v) 24.9 mmol/L (22.0-28.0); CO2 Tension (PvCO2) 47.2 mmHg (42.0-51.0); Calcium, Ionized 1.15 mmol/L (1.15-1.33); Chloride 107 mmol/L (98-107); Hemoglobin - Calc 12.7 g/dL (12.0-16.0); Potassium 4.1 mmol/L (3.5-5.1); Sodium 142 mmol/L (138-145); T. Carbon Dioxide 26.4 mmol/L (22.0-28.0)
[2023-08-26 22:51] LABS: ALT (SGPT) 11 U/L (8-55); AST (SGOT) 19 U/L (5-34); Alkaline Phosphatase 113 U/L (40-110); Anion Gap 14 mmol/L (10-20); BUN (Urea Nitrogen) 21 mg/dL (9.8-20.1); Bilirubin, Total 0.2 mg/dL (0.2-1.2); Calc. Creatinine Clearance 0 mL/min (70-130); Calcium 8.9 mg/dL (7.8-10.44); Carbon Dioxide 24 mmol/L (23-31); Chloride 108 mmol/L (98-107); Estimated GFR 52; Globulin 2.2 g/dL (2.4-3.5); Glucose 135 mg/dL (83-110); Potassium 4.3 mmol/L (3.5-5.1); Protein, Total 6.2 g/dL (5.8-8.1); Sodium 142 mmol/L (136-145)
[2023-08-26 22:52] LABS: Troponin I 0.022 ng/mL (< 0.028)
[2023-08-26] MEDS ORDERED: guaiFENesin ER 600 MG TAB PO SCH (23:00)
[2023-08-26] MEDS ORDERED: Azithromycin 500 MG VIAL ONE (23:18)
== END 2023-08-27 00:19 | disposition home or self-care (01) ==
LOC: BURERS 21:54
DX: J44.1 Chronic obstructive pulmonary disease with (acute) exacerbation (principal); R00.0 Tachycardia, unspecified; I11.0 Hypertensive heart disease with heart failure; I50.9 Heart failure, unspecified; E78.5 Hyperlipidemia, unspecified; Z87.891 Personal history of nicotine dependence; Z95.5 Presence of coronary angioplasty implant and graft; Z79.899 Other long term (current) drug therapy
CPT/HCPCS: 71045; 80053; 82330; 82435; 82803; 84132; 84295; 84484; 85014; 85025; 85379; 93005; 96365; 99285; J0456

== ENCOUNTER 2023-10-27 11:32 | Emergency (ER) | payer MEDICARE, MEDICAID ==
[2023-10-27 12:06] LABS: #Lymphocytes 0.9 thou/uL (1.20-3.40); #Monocytes 0.2 thou/uL (0.11-0.59); #Neutrophils 10.4 thou/uL (1.40-6.50); %Basophils 0.4 % (0.0-1.0); %Eosinophils 0.1 % (0.0-10.0); %Lymphocytes 8.1 % (21.0-51.0); %Monocytes 1.6 % (0.0-10.0); %Neutrophils 89.8 % (42.0-75.0); Hematocrit 37.1 % (36.0-47.0); Hemoglobin 11.5 g/dL (12.0-16.0); Mean Corpuscular HGB CONC 30.9 g/dL (32.0-36.0); Mean Corpuscular Hemoglobin 26.9 pg (27.0-31.0); Mean Platelet Volume 8.4 fL (7.4-10.4); Platelet Count 292 10x3/uL (130-400); RBC Distribution Width 13.3 % (11.5-14.5); Red Blood Cell (RBC) Count 4.27 mill/uL (4.20-5.40); White Blood Cell (WBC) Count 11.6 10x3/uL (4.8-10.8)
[2023-10-27 12:18] LABS: ALT (SGPT) 22 U/L (8-55); AST (SGOT) 29 U/L (5-34); Alkaline Phosphatase 109 U/L (40-110); Anion Gap 14 mmol/L (10-20); BUN (Urea Nitrogen) 16 mg/dL (9.8-20.1); Bilirubin, Total 0.2 mg/dL (0.2-1.2); Calc. Creatinine Clearance 0 mL/min (70-130); Calcium 8.9 mg/dL (7.8-10.44); Carbon Dioxide 24 mmol/L (23-31); Chloride 111 mmol/L (98-107); Estimated GFR 66; Globulin 2.3 g/dL (2.4-3.5); Glucose 157 mg/dL (83-110); Potassium 4.1 mmol/L (3.5-5.1); Protein, Total 6.3 g/dL (5.8-8.1); Sodium 145 mmol/L (136-145)
[2023-10-27 12:22] LABS: Troponin I 0.018 ng/mL (< 0.028)
[2023-10-27] MEDS ORDERED: Albuterol 2.5 MG (3 mL) NEB ONE (12:22)
[2023-10-27] MEDS ORDERED: Ipratropium Bromide 2.5 ml Neb ONE (12:23)
[2023-10-27] MEDS ORDERED: Albuterol 2.5 MG (0.5 mL) NEB ONE (12:23)
[2023-10-27] MEDS ORDERED: methylPREDNISolone Sod Succ/PF 125 MG/2 ML VIAL ONE (13:02)
[2023-10-27 16:06] LABS: CO2 Tension (PvCO2) 58.6 mmHg (42.0-51.0)
[2023-10-27 16:07] LABS: Bicarbonate (HCO3v) 26.9 mmol/L (22.0-28.0); Chloride 108 mmol/L (98-107); Hemoglobin - Calc 12.3 g/dL (12.0-16.0); Sodium 145 mmol/L (138-145); vO2 Saturation-calc 77.3 % (60.0-85.0)
[2023-10-27 16:08] LABS: Calcium, Ionized 1.23 mmol/L (1.15-1.33); T. Carbon Dioxide 28.7 mmol/L (22.0-28.0)
== END 2023-10-27 13:37 | disposition home or self-care (01) ==
LOC: BURERS 11:32
DX: J44.1 Chronic obstructive pulmonary disease with (acute) exacerbation (principal); I11.0 Hypertensive heart disease with heart failure; I50.9 Heart failure, unspecified; E78.5 Hyperlipidemia, unspecified; Z87.891 Personal history of nicotine dependence; Z79.899 Other long term (current) drug therapy
CPT/HCPCS: 71045; 80053; 82330; 82435; 82803; 83880; 84132; 84295; 84484; 85014; 85025; 93005; J2930; 36415; 96374; J7611

== ENCOUNTER 2023-10-29 06:46 | Emergency (ER) | payer MEDICARE, MEDICAID ==
[2023-10-29 07:23] LABS: #Basophils 0.1 thou/uL (0.0-0.2); #Lymphocytes 4.2 thou/uL (1.20-3.40); #Monocytes 0.5 thou/uL (0.11-0.59); #Neutrophils 7.7 thou/uL (1.40-6.50); %Basophils 0.8 % (0.0-1.0); %Eosinophils 0.3 % (0.0-10.0); %Lymphocytes 33.3 % (21.0-51.0); %Monocytes 4.1 % (0.0-10.0); %Neutrophils 61.6 % (42.0-75.0); Hematocrit 35.8 % (36.0-47.0); Hemoglobin 11.1 g/dL (12.0-16.0); Mean Corpuscular Hemoglobin 26.9 pg (27.0-31.0); Mean Corpuscular Volume 86.7 fl (78.0-98.0); Mean Platelet Volume 7.8 fL (7.4-10.4); Platelet Count 323 10x3/uL (130-400); RBC Distribution Width 13.7 % (11.5-14.5); Red Blood Cell (RBC) Count 4.13 mill/uL (4.20-5.40); White Blood Cell (WBC) Count 12.6 10x3/uL (4.8-10.8)
[2023-10-29] MEDS ORDERED: Ipratropium/Albuterol 3 ML NEB ONE (07:24)
[2023-10-29] MEDS ORDERED: Magnesium 2 GM/50 ML BAG (IN WATER) ONE (07:25)
[2023-10-29] MEDS ORDERED: Azithromycin 500 MG VIAL ONE (07:34)
[2023-10-29] MEDS ORDERED: Sodium Chloride 0.9% 100 ML ONE ×2 (07:34→07:45)
[2023-10-29 07:39] LABS: ALT (SGPT) 38 U/L (8-55); AST (SGOT) 40 U/L (5-34); Albumin 3.7 g/dL (3.4-4.8); Alkaline Phosphatase 122 U/L (40-110); Anion Gap 12 mmol/L (10-20); BUN (Urea Nitrogen) 26 mg/dL (9.8-20.1); Bilirubin, Total 0.2 mg/dL (0.2-1.2); Calc. Creatinine Clearance 0 mL/min (70-130); Calcium 8.5 mg/dL (7.8-10.44); Carbon Dioxide 27 mmol/L (23-31); Chloride 109 mmol/L (98-107); Estimated GFR 55; Globulin 1.9 g/dL (2.4-3.5); Glucose 110 mg/dL (83-110); Potassium 4.1 mmol/L (3.5-5.1); Protein, Total 5.6 g/dL (5.8-8.1); Sodium 144 mmol/L (136-145)
[2023-10-29 07:40] LABS: Troponin I Less than 0.010 ng/mL (< 0.028)
[2023-10-29] MEDS ORDERED: cefTRIAXone (ROCEPHIN) 2 GM VIAL ONE (07:45)
== END 2023-10-29 09:10 | disposition home or self-care (01) ==
LOC: BURERS 06:46
DX: J44.1 Chronic obstructive pulmonary disease with (acute) exacerbation (principal); I11.0 Hypertensive heart disease with heart failure; I50.9 Heart failure, unspecified; Z87.891 Personal history of nicotine dependence; Z79.899 Other long term (current) drug therapy
CPT/HCPCS: 71045; 80053; 83605; 84484; 85025; 87040; 87149 ×2; 93005; 94640; 94760; J0456; J0696; J3475; J3490; 36415; 96365; 96367; 96368; J7620

== ENCOUNTER 2023-11-06 14:42 | Emergency (ER) | payer MEDICARE, MEDICAID ==
[2023-11-06] MEDS ORDERED: Lidocaine 1% PF 5 ML VIAL ONE (15:16)
== END 2023-11-06 16:23 | disposition home or self-care (01) ==
LOC: BURERS 14:42
DX: S01.01XA Laceration without foreign body of scalp, initial encounter (principal); S20.219A Contusion of unspecified front wall of thorax, initial encounter; S40.011A Contusion of right shoulder, initial encounter; S80.11XA Contusion of right lower leg, initial encounter; I13.2 Hypertensive heart and chronic kidney disease with heart failure and with stage 5 chronic kidney disease, or end stage renal disease; I50.9 Heart failure, unspecified; J44.9 Chronic obstructive pulmonary disease, unspecified; Z87.891 Personal history of nicotine dependence; W22.8XXA Striking against or struck by other objects, initial encounter
CPT/HCPCS: 12001; 70450; 71250

== ENCOUNTER 2024-03-01 12:27 | Emergency (ER) | payer MEDICARE, MEDICAID ==
[2024-03-01] MEDS ORDERED: Ipratropium/Albuterol 3 ML NEB ONE (12:38)
== END 2024-03-01 13:22 | disposition home or self-care (01) ==
LOC: BURERS 12:27
DX: J44.1 Chronic obstructive pulmonary disease with (acute) exacerbation (principal); J44.9 Chronic obstructive pulmonary disease, unspecified; E78.5 Hyperlipidemia, unspecified; I11.0 Hypertensive heart disease with heart failure; I50.9 Heart failure, unspecified; Z87.891 Personal history of nicotine dependence; Z79.82 Long term (current) use of aspirin; Z79.899 Other long term (current) drug therapy; Z79.51 Long term (current) use of inhaled steroids
CPT/HCPCS: 71045; 94640; 94760; J7620

== ENCOUNTER 2024-04-09 13:36 | Emergency (ER) | payer MEDICARE, MEDICAID ==
[2024-04-09] MEDS ORDERED: Ipratropium/Albuterol 3 ML NEB ONE (13:44)
== END 2024-04-09 14:20 | disposition home or self-care (01) ==
LOC: BURERS 13:36
DX: J44.1 Chronic obstructive pulmonary disease with (acute) exacerbation (principal); I11.0 Hypertensive heart disease with heart failure; I50.9 Heart failure, unspecified; Z87.891 Personal history of nicotine dependence
CPT/HCPCS: 71045; J7620

== ENCOUNTER 2024-05-12 20:43 | Emergency (ER) | payer MEDICARE, MEDICAID ==
[2024-05-12] MEDS ORDERED: Ipratropium/Albuterol 3 ML NEB ONE (21:17)
[2024-05-12] MEDS ORDERED: predniSONE 20 MG TAB ONE (21:24)
== END 2024-05-12 22:48 | disposition home or self-care (01) ==
LOC: BURERS 20:43
DX: J44.1 Chronic obstructive pulmonary disease with (acute) exacerbation (principal); I11.0 Hypertensive heart disease with heart failure; I50.9 Heart failure, unspecified; E78.5 Hyperlipidemia, unspecified; Z95.5 Presence of coronary angioplasty implant and graft; Z87.891 Personal history of nicotine dependence; Z79.82 Long term (current) use of aspirin; Z79.02 Long term (current) use of antithrombotics/antiplatelets; Z79.899 Other long term (current) drug therapy
CPT/HCPCS: J7512; J7620

== ENCOUNTER 2024-05-26 03:40 | Emergency (ER) | payer MEDICARE, MEDICAID ==
[2024-05-26] MEDS ORDERED: Magnesium 2 GM/50 ML BAG (IN WATER) ONE (04:09)
[2024-05-26] MEDS ORDERED: Ipratropium/Albuterol 3 ML NEB ONE (04:09)
== END 2024-05-26 06:02 | disposition home or self-care (01) ==
LOC: BURERS 03:40
DX: J44.1 Chronic obstructive pulmonary disease with (acute) exacerbation (principal); I11.0 Hypertensive heart disease with heart failure; I50.9 Heart failure, unspecified; Z95.5 Presence of coronary angioplasty implant and graft; Z87.891 Personal history of nicotine dependence
CPT/HCPCS: 71045; 93005; 94640; J3475; 96365; 96366; J7620

== ENCOUNTER 2024-08-24 00:08 | Emergency (ER) | payer MEDICARE, MEDICAID ==
[2024-08-24 00:38] LABS: #Basophils 0.1 thou/uL (0.0-0.2); #Eosinophils 0.8 thou/uL (0.0-0.7); #Lymphocytes 2.3 thou/uL (1.20-3.40); #Monocytes 0.5 thou/uL (0.11-0.59); #Neutrophils 4.3 thou/uL (1.40-6.50); %Basophils 0.9 % (0.0-1.0); %Eosinophils 9.5 % (0.0-10.0); %Lymphocytes 29.3 % (21.0-51.0); %Monocytes 6.5 % (0.0-10.0); %Neutrophils 53.8 % (42.0-75.0); Hematocrit 31.4 % (36.0-47.0); Hemoglobin 9.5 g/dL (12.0-16.0); Mean Corpuscular HGB CONC 30.3 g/dL (32.0-36.0); Mean Corpuscular Hemoglobin 24.5 pg (27.0-31.0); Mean Corpuscular Volume 80.7 fl (78.0-98.0); Mean Platelet Volume 9.6 fL (7.4-10.4); Platelet Count 269 10x3/uL (130-400); RBC Distribution Width 13.7 % (11.5-14.5); Red Blood Cell (RBC) Count 3.89 mill/uL (4.20-5.40); White Blood Cell (WBC) Count 7.9 10x3/uL (4.8-10.8)
[2024-08-24] MEDS ORDERED: Ipratropium/Albuterol 3 ML NEB ONE ×2 (00:38→01:20)
[2024-08-24] MEDS ORDERED: methylPREDNISolone Sod Succ/PF 125 MG/2 ML VIAL ONE (00:38)
[2024-08-24 00:50] LABS: ALT (SGPT) 11 U/L (Less than 34); AST (SGOT) 21 U/L (11-34); Albumin 3.8 g/dL (3.1-4.5); Alkaline Phosphatase 102 U/L (40-110); Anion Gap 16 mmol/L (10-20); BUN (Urea Nitrogen) 15 mg/dL (9.8-20.1); Bilirubin, Total 0.3 mg/dL (0.3-1.2); Calc. Creatinine Clearance 0 mL/min (70-130); Calcium 9.3 mg/dL (7.8-10.44); Chloride 105 mmol/L (98-107); Estimated GFR 66; Globulin 3.1 g/dL (2.4-3.5); Glucose 113 mg/dL (83-110); Potassium 4.5 mmol/L (3.5-5.1); Protein, Total 6.9 g/dL (5.8-8.1); Sodium 143 mmol/L (136-145)
[2024-08-24 00:53] LABS: Troponin I Less than 0.010 ng/mL (< 0.028)
[2024-08-24 00:55] LABS: Carbon Dioxide 27 mmol/L (23-31)
[2024-08-24] MEDS ORDERED: Furosemide 40 MG (4 mL) VIAL ONE (01:14)
[2024-08-24 01:34] LABS: Hypochromia SLIGHT = 6-15 cells (100X) (0-5/hpf); MDiff Complete? YES; Platelet Adequacy Comment Appears Adequate
== END 2024-08-24 02:11 | disposition home or self-care (01) ==
LOC: BURERS 00:08
DX: J44.9 Chronic obstructive pulmonary disease, unspecified (principal); I11.0 Hypertensive heart disease with heart failure; I50.9 Heart failure, unspecified; E78.5 Hyperlipidemia, unspecified; I25.10 Atherosclerotic heart disease of native coronary artery without angina pectoris; Z79.82 Long term (current) use of aspirin; Z79.02 Long term (current) use of antithrombotics/antiplatelets; Z79.899 Other long term (current) drug therapy; Z79.891 Long term (current) use of opiate analgesic
CPT/HCPCS: 71045; 80053; 83880; 84484; 85025; 93005; 94760; 96374; 96375; J1940; J2919; J7620

== ENCOUNTER 2025-02-07 12:47 | Emergency (ER) | payer MEDICARE, MEDICAID ==
[2025-02-07] MEDS ORDERED: predniSONE 20 MG TAB ONE (13:33)
[2025-02-07 13:51] LABS: Troponin I Less than 0.010 ng/mL (< 0.028)
[2025-02-07 13:55] LABS: Hematocrit 28.6 % (36.0-47.0); Hemoglobin 9.0 g/dL (12.0-16.0); MDiff Complete? YES; Mean Corpuscular Hemoglobin 21.8 pg (27.0-31.0); Mean Corpuscular Volume 69.2 fl (78.0-98.0); Platelet Count 378 10x3/uL (130-400); Red Blood Cell (RBC) Count 4.13 mill/uL (4.20-5.40); White Blood Cell (WBC) Count 10.3 10x3/uL (4.8-10.8)
[2025-02-07 13:57] LABS: ALT (SGPT) 7 U/L (Less than 34); AST (SGOT) 22 U/L (11-34); Albumin 3.5 g/dL (3.1-4.5); Alkaline Phosphatase 96 U/L (40-110); Anion Gap 16 mmol/L (10-20); BUN (Urea Nitrogen) 16 mg/dL (9.8-20.1); Bilirubin, Total 0.3 mg/dL (0.3-1.2); Calc. Creatinine Clearance 0 mL/min (70-130); Calcium 9.0 mg/dL (7.8-10.44); Carbon Dioxide 23 mmol/L (23-31); Chloride 104 mmol/L (98-107); Globulin 3.1 g/dL (2.4-3.5); Glucose 101 mg/dL (83-110); Magnesium 2.0 mg/dL (1.6-2.6); Potassium 4.1 mmol/L (3.5-5.1); Sodium 139 mmol/L (136-145)
[2025-02-07] MEDS ORDERED: Acetaminophen 500 MG TAB ONE (14:14)
== END 2025-02-07 17:15 | disposition home or self-care (01) ==
LOC: BURERS 12:47
DX: J44.1 Chronic obstructive pulmonary disease with (acute) exacerbation (principal); D50.9 Iron deficiency anemia, unspecified; I11.0 Hypertensive heart disease with heart failure; I50.9 Heart failure, unspecified; E78.5 Hyperlipidemia, unspecified; Z87.891 Personal history of nicotine dependence; Z79.51 Long term (current) use of inhaled steroids; Z79.899 Other long term (current) drug therapy
CPT/HCPCS: 71046; 80053; 83735; 83880; 84484; 85025; 93005; 94760; J7512

== ENCOUNTER 2025-02-12 08:32 | Outpatient (CLI) | payer OTHER ==
[2025-02-12 09:29] LABS: ALT (SGPT) 23 U/L (Less than 34); AST (SGOT) 34 U/L (11-34); Albumin 3.5 g/dL (3.1-4.5); Alkaline Phosphatase 95 U/L (40-110); Anion Gap 15 mmol/L (10-20); BUN (Urea Nitrogen) 21 mg/dL (9.8-20.1); Bilirubin, Total 0.3 mg/dL (0.3-1.2); Calc. Creatinine Clearance 0 mL/min (70-130); Calcium 8.8 mg/dL (7.8-10.44); Carbon Dioxide 27 mmol/L (23-31); Cardiac Risk 1.6 (Less than 4.5); Chloride 107 mmol/L (98-107); Cholesterol 97 mg/dl (< 200 Desired); Globulin 2.6 g/dL (2.4-3.5); Glucose 89 mg/dL (83-110); HDL Cholesterol 62 mg/dL (>60 Neg Risk); LDL Cholesterol, Calculated 24 mg/dL; Potassium 4.4 mmol/L (3.5-5.1); Sodium 145 mmol/L (136-145); Triglycerides 53 mg/dL (Less than 150)
== END 2025-02-12 08:33 | disposition home or self-care (01) ==
LOC: BURLAB 08:32
PROVIDERS: ATTEND Nurse Practitioner Family
DX: E78.00 Pure hypercholesterolemia, unspecified (principal)
CPT/HCPCS: 36415; 80053; 80061